=== PATIENT | female | born 1950 | race Caucasian/White ===

== ENCOUNTER 2025-03-10 13:25 | Emergency (ER) | payer OTHER ==
[~2025-03-10] VITALS: Ht 157.5 cm; Wt 73.9 kg
[~2025-03-10 13:25] MED LIST: ARICEPT5 MG PO; CELEBREX100 MG PO; CITALOPRAM HBR10 MG PO; LEVAQUIN500 MG PO; NEXIUM40 MG; NORCO 5-325 TA1 EACH PO; VITAMIN C500 M2 PO; VITAMIN D31000 UNIT PO
[2025-03-10] MEDS: KETOROLAC TROMETHAMINE 30 MG/ML VIAL IV STA (15:22)
[2025-03-10] MEDS: Morphine 4mg INJECTION 4 MG/ML INJ IV ONE (15:22)
[2025-03-10] MEDS: CEFTRIAXONE 1 GM VIAL IM ONE (15:22)
[2025-03-10] MEDS ORDERED: CEFDINIR300 MG PO (16:19)
[2025-03-10 16:34] VITALS: PULSE 62; RESP 16; TEMP 98; O2SAT 97
== END 2025-03-10 16:34 | disposition home or self-care (01) ==
LOC: FSED 13:38
DX: M54.50 Low back pain, unspecified (principal); N39.0 Urinary tract infection, site not specified; I10 Essential (primary) hypertension; E11.65 Type 2 diabetes mellitus with hyperglycemia; E78.5 Hyperlipidemia, unspecified; K21.9 Gastro-esophageal reflux disease without esophagitis; F41.9 Anxiety disorder, unspecified; F32.A Depression, unspecified; Z96.651 Presence of right artificial knee joint
CPT/HCPCS: 80053; 81003; 85025; 96374; 96375; 99284; J0696; J1885; J2270

== ENCOUNTER 2025-04-03 17:02 | Emergency (ER) | payer OTHER ==
[~2025-04-03] VITALS: Ht 157.5 cm; Wt 73.9 kg
[~2025-04-03 17:02] MED LIST changes: +CEFDINIR300 MG PO
[2025-04-03 17:52] VITALS: PULSE 82; RESP 16; TEMP 98.5
[2025-04-03] MEDS: KETOROLAC TROMETHAMINE 60 MG/2 ML VIAL IM STA (19:28)
[2025-04-03] MEDS: SODIUM CHLORIDE 0.9% 1000ML 2,000 ML IV STA (20:18)
[2025-04-03] MEDS: NALOXONE HCL 2MG/2 ML SYRINGE IV STA (20:28)
[2025-04-03 20:36] LABS: BASOPHILS % 0.3 % (0.0-1.0); EOSINOPHILS % 1.6 % (0.0-6.0); LYMPHOCYTES % 14.5 % (18.0-39.1); MONOCYTES % 10.6 % (4.4-11.3); NEUTROPHILS % 72.5 % (38.7-80.0); RED CELL DISTRIBUTION WIDTH 12.5 % (11.7-14.4)
[2025-04-03 20:56] LABS: EST GLOMERULAR FILTRATION RATE 92 ML/MIN (>=60)
[2025-04-03] MEDS ORDERED: KETOROLAC TROME10 MG PO (21:47)
[2025-04-03] MEDS ORDERED: PREDNISONE20 MG PO (21:47)
[2025-04-03 22:06] VITALS: BP 112/77; PULSE 65; RESP 18; O2SAT 98
== END 2025-04-03 22:07 | disposition home or self-care (01) ==
LOC: ER 17:51
DX: M54.2 Cervicalgia (principal); I95.9 Hypotension, unspecified; I10 Essential (primary) hypertension; E11.65 Type 2 diabetes mellitus with hyperglycemia; E78.5 Hyperlipidemia, unspecified; K21.9 Gastro-esophageal reflux disease without esophagitis; F41.9 Anxiety disorder, unspecified; F32.A Depression, unspecified; Z96.651 Presence of right artificial knee joint
CPT/HCPCS: 36415; 71045; 72125; 80053; 82550; 83690; 83880; 84484; 85025; 93005; 99284; J1885; J2310; J7030